=== PATIENT | female | born 1940 | race Caucasian/White ===

== ENCOUNTER 2016-03-10 09:47 | Emergency (ER) | payer OTHER, BC ==
[~2016-03-10] VITALS: Ht 149.9 cm; Wt 103.8 kg
[~2016-03-10 09:47] MED LIST: ALLOPURINOL100 MG PO; ASCORBIC ACID500 M3 PO; ASPIRIN EC325 MG PO; ATORVASTATIN CA40 MG PO; CELEBREX200 MG PO; CHERATUSSIN AC473 ML PO; COUMADIN4 MG PO; DILTIAZEM 24HR240 MG PO; DOK PLUS TABLE1 EACH PO; ERGOCALCIF50000 UNIT PO; FOLIC ACID1 MG PO; FUROSEMIDE20 MG PO; HYDROCODON-ACE1 EAC7 PO; PAROXETINE HCL10 MG PO; PRADAXA150 MG PO; RYTHMOL150 MG PO; SENNA PLUS TAB1 EACH PO; SPIRONOLACT/HC1 EACH PO; SPIRONOLACTONE25 MG PO; THERAGRAN1 TABLET PO; TYLENOL EXTRA500 MG PO; TYLENOL REGULA325 MG PO; XARELTO20 MG PO
[2016-03-10 11:19] LABS: EOSINOPHIL (%) 0.3 % (0-5); HEMATOCRIT 41.7 % (36.0-46.0); IMMATURE GRANULOCYTE (%) 0.1 % (0.0-0.7); IMMATURE GRANULOCYTE COUNT 0.1 K/uL; MCH 31.1 PG (29.0-34.0); MCHC 33.8 G/DL (30.0-36.0); MCV 91.9 FL (83-99); MONOCYTE COUNT 0.3 K/uL (0-0.8); NEUTROPHIL (%) 81.5 % (45-76); PLATELET COUNT 231 K/uL (156-360); RBC DIS.WIDTH-CV 14.2 % (11.8-14.6); RBC DIS.WIDTH-SD 46.8 % (39-53); RED BLOOD COUNT 4.54 M/uL (3.80-5.20); WHITE BLOOD COUNT 7.3 K/uL (4.1-10.2)
[2016-03-10 11:29] LABS: CHLORIDE 104 mEq/L (99-109); POTASSIUM 3.7 mEq/L (3.7-5.4); SODIUM 139 mEq/L (136-147)
[2016-03-10 11:31] LABS: GLUCOSE 106 mg/dL (70-99)
[2016-03-10 11:32] LABS: ANION GAP 9 MEQ/L (2-14)
[2016-03-10 11:35] LABS: GFR ESTIMATE (CALCULATED) > 59 mL/min/
[2016-03-10 11:36] LABS: UREA NITROGEN (BUN) 13 mg/dL (9-23)
[2016-03-10 11:57] LABS: ADD MIUA? YES; BILIRUBIN NEGATIVE; BLOOD TRACE; GLUCOSE (STRIP) NEGATIVE; KETONES NEGATIVE; LEUKOCYTES LARGE; NITRITE NEGATIVE; PROTEIN (STRIP) NEGATIVE; SPECIFIC GRAVITY 1.017 (1.000-1.030); UROBILINOGEN 0.2 MG/DL (0.2-1.0)
[2016-03-10 11:58] LABS: COLOR LT YELLOW ((YELLOW))
[2016-03-10 12:25] LABS: RED BLOOD CELLS RARE /HPF (0-5)
[2016-03-10 12:26] LABS: BACTERIA 1+; CASTS NONE SEEN /LPF; CRYSTALS NONE SEEN; EPITHELIAL CELLS 1+; MUCUS NONE SEEN
[2016-03-10] MEDS ORDERED: CIPRO500 MG PO (12:49)
[2016-03-10] MEDS ORDERED: PERCOCET 5/31 TABLET PO (12:49)
[2016-03-10 13:51] VITALS: BP 108/87
== END 2016-03-10 12:49 | disposition home or self-care (01) ==
LOC: EME 09:47
PROVIDERS: Emergency Medicine
DX: M16.11 Unilateral primary osteoarthritis, right hip (principal); R10.9 Unspecified abdominal pain; I10 Essential (primary) hypertension; Z95.0 Presence of cardiac pacemaker; Z88.0 Allergy status to penicillin; Z88.6 Allergy status to analgesic agent
CPT/HCPCS: 73502; 74176; 80048; 81003; 85025; 93005; 99281; 99285; J1885